=== PATIENT | male | born 1940 | race Caucasian/White ===

== ENCOUNTER 2024-03-21 14:23 | Emergency (ER) | payer MEDICARE, OTHER, SELFPAY ==
[2024-03-21 14:35] VITALS: BP 139/83
--- NOTE | 2024-03-21 16:07 | ED.GENMED ---
History of Present Illness
General
Chief Complaint: Head Injury
Source: patient
Exam Limitations: none
Time Seen by Provider: 03/21/24 14:37
Nursing documentation reviewed up to this point in time: agreed with
History of Present Illness
History of Present Illness:
83-year-old male presenting to the emergency department after trip and fall in the hospital parking lot hitting his face did not lose consciousness not on blood thinners no neck pain no significant symptoms other than the to the areas where he has
abrasions on his right forehead nasal bridge and right upper lip. Denies any numbness weakness has been able to ambulate
Past History
Past History
ED Past Medical History: GERD and Other (Severe arthritis of shoulder)
ED Past Surgical History: None
Social History
Tobacco: Non-smoker
Alcohol: None
Personal:
Living: with family
Employment: Retired
Family History
Family History: Other (Noncontributory)
Review of Systems
Review of Systems
Allergies reviewed?: Yes
All Other Systems: ROS reviewed and negative except as documented in HPI and ROS
Phy Exam
Physical Exam
Physical Exam:
GENERAL: Alert , in no apparent distress
EYE: pupils equal and reactive
NECK: Supple, no significant adenopathy.
ENT: Superficial abrasion to the right forehead just above the right lateral eyebrow additionally to the nasal bridge and the right upper lip. Otherwise normal extraocular movements, no significant laceration all abrasions are superficial no
foreign body seen. o/p clr, mmm.
CARDIAC: Regular rate and rhythm .
LUNGS: Clear breath sounds bilaterally, no acute respiratory distress, no wheezes/rales/rhonchi
ABDOMEN: Soft, without focal tenderness, no r/g, no cvat
NEUROLOGICAL: Alert and oriented, no focal neuro deficits
SKIN: Warm and dry, skin intact.
MUSCULOSKELETAL: No edema, well perfused.
PSYCH: Normal and appropriate interaction.
Course
Orders/Labs/Results
Orders:
Orders
03/21/24 14:38
CT Facial Bones W/o Iv Contras Urgent
Comment:
Reason For Exam: fall hit face
CT Head W/o Iv Contrast Urgent
Comment:
Reason For Exam: fall hit head
Vital Signs
Initial and Last Documented VS:
Initial Vital Signs
Temp Pulse Resp BP Pulse Ox
97.4 F 65 16 139/83 98
03/21/24 14:35 03/21/24 14:35 03/21/24 14:35 03/21/24 14:35 03/21/24 14:35
Last Documented Vital Signs
Temp Pulse Resp BP Pulse Ox
97.4 F 65 16 139/83 98
03/21/24 14:35 03/21/24 14:35 03/21/24 14:35 03/21/24 14:35 03/21/24 14:35
Procedures
Laceration Closure
Right Eye lid:
Status of Wound: clean
Size of Wound in cm: 2
Description of Wound Edges: sharp
Preparation: cleaned with saline
Revision/Debridement: routine- no revision and irrigate-direct pressure
Wound exploration: explored to base- no FB and no tendon involvement
Type of Closure: single layer closure and Dermabond-skin glue
MDM/Problems Addressed
MDM/Problems Addressed:
83-year-old male presenting to the emergency department today after a mechanical trip and fall abrading the forehead nasal bridge and upper lip. Not on blood thinners no neck pain no numbness or weakness. Patient does have a small laceration to
the right upper eyelid that was closed with Dermabond. Otherwise head CT and facial CT without evidence of emergent findings. Patient generally well-appearing stable for outpatient management return precautions given.
*Critical Care Note
Total Time (30-74mins, 75-104mins- exclusive of procedures): Not Applicable
ED Attending Note
-
Portions of this chart may have been created with voice recognition software.� Occasional wrong word or��sound alike� substitutions may have occurred due to the inherent limitations of voice recognition software.
Discharge Plan
Departure
Patient Disposition: Home (Routine Discharge)
Date of Disposition: 03/21/24
Time of Disposition: 17:16
Patient with high blood pressure during this ER visit?: No
Condition: Good
Covid-19: Not Applicable
Discharge Problem:
Fall, Laceration of eyelid without involvement of lid margin, Abrasion of face
Instructions: Laceration Repair With Glue (DC), Minor Head Injury (DC)
Prescriptions:
No Action
prednisone 10 MG tablet
10 mg PO .TAPER Qty: 30 0RF
Rx Instructions:
Take 40mg daily x3days, 30mg daily x3days,
20mg daily x3days, 10mg daily x3days.
Referrals:
Sunil Andrew MD [Family Provider] -
Activity Restrictions/Additional Instructions:
You came to the emergency department today after a fall. Here you had a normal facial and head CT. You had Dermabond used for small laceration to your eyelid. Please let this follow-up on its own in the next week or so. Return to the emergency
department any worsening, new or concerning symptoms.
Interventions
Interventions:
*Risk Screen - Suicide Last Done: 03/21/24 14:35
*Neglect/Abuse Screening Last Done: 03/21/24 14:35
ED- Neurological Assessment Last Done: 03/21/24 16:00
ED-Skin Assessment Last Done: 03/21/24 16:00
Discharge Date and Time
Print Language: SYRIAC
[2024-03-21] MEDS: ADACEL 0.5 ML IM (17:27)
[2024-03-21 17:39] VITALS: BP 140/88
== END 2024-03-21 17:41 | disposition home or self-care (01) ==
LOC: EMR 14:23
PROVIDERS: EMERGENCY PHYSICIAN Emergency Medicine; FAMILY PHYSICIAN Family Medicine
DX: S01.111A Laceration without foreign body of right eyelid and periocular area, initial encounter (principal); K21.9 Gastro-esophageal reflux disease without esophagitis; W01.0XXA Fall on same level from slipping, tripping and stumbling without subsequent striking against object, initial encounter; Z23 Encounter for immunization
CPT/HCPCS: 12011; 90471; 99284; 70450; 70486; 90715